=== PATIENT | female | born 1990 | race African-American/Black ===

== ENCOUNTER 2017-10-11 12:25 | Outpatient (CLI) | payer OTHER | END 2017-10-11 12:26 | disposition home or self-care (01) | LOC: BICULT 12:25 | PROVIDERS: ATTEND Family Medicine | DX: O23.592 Infection of other part of genital tract in pregnancy, second trimester (principal); Z3A.25 25 weeks gestation of pregnancy | CPT/HCPCS: 76805 ==

== ENCOUNTER 2017-10-21 08:48 | Emergency (ER) | payer OTHER | END 2017-10-21 10:30 | disposition home or self-care (01) | LOC: ERS 08:48 | DX: J30.9 Allergic rhinitis, unspecified (principal); F17.210 Nicotine dependence, cigarettes, uncomplicated | CPT/HCPCS: 99283 ==

== ENCOUNTER 2017-10-30 12:21 | Emergency (ER) | payer OTHER ==
[2017-10-30 13:27] LABS: Bilirubin Negative (Negative); Blood, Urine Negative (Negative); Clarity CLOUDY (Clear); Glucose, Urine (Dipstick) Negative (Negative); Leukocyte Trace (Negative); Nitrite Negative (Negative); Pregnancy Test - Urine (BHCG) POSITIVE (Negative); Pregu Control Background? CLEAR/WHITE (CLR/WHITE); Pregu Control Bar Appear? YES (CONTROL BAR); Protein, Urine (Dipstick) Negative (Neg-Trace); Specific Gravity 1.027 (1.002-1.036); Specific Gravity, Urine 1.027 (1.002-1.036)
[2017-10-30 13:28] LABS: Hyaline Casts/LPF 4-6 HYALINE CAST LPF (0-3 Hyaline); Pathc Cast-AUWi Flag 0.94 (0-2.49)
--- NOTE | 2017-10-30 13:37 | RAD ---
2 VIEW CHEST: Date: 10/30/17 HISTORY: Cough. FINDINGS: The lung obregon are clear. No infiltrate identified. Heart and mediastinum unremarkable. IMPRESSION: No acute abnormality. POS: [facility]
[2017-10-30 13:41] LABS: Bacteria/HPF 2+ HPF (None Seen)
[2017-10-30 13:42] LABS: RBC/HPF 0-3 HPF (0-3)
[2017-10-30] MEDS ORDERED: Acetaminophen 500 MG TAB ONE (13:45)
== END 2017-10-30 14:12 | disposition home or self-care (01) ==
LOC: ERS 12:21
DX: O99.89 Other specified diseases and conditions complicating pregnancy, childbirth and the puerperium (principal); R05 Cough; O23.42 Unspecified infection of urinary tract in pregnancy, second trimester; O99.332 Smoking (tobacco) complicating pregnancy, second trimester; Z3A.24 24 weeks gestation of pregnancy
CPT/HCPCS: 71046; 81003; 81015; 81025; 87086

== ENCOUNTER 2018-01-05 19:54 | Observation (INO) | payer OTHER ==
[2018-01-05 20:31] VITALS: BMI 19.8
[2018-01-05] MEDS ORDERED: Ondansetron HCl/PF 4 MG/2 ML Vial IVP PRN (23:55)
[2018-01-05] MEDS ORDERED: Acetaminophen 500 MG TAB PO PRN (23:55)
--- NOTE | 2018-01-06 01:31 | PRG ---
DATE OF SERVICE: 01/05/2018 PRIMARY OB: Dr. Alexys Simental. CHIEF COMPLAINT: Abdominal pains. HISTORY OF PRESENT ILLNESS: The patient is a 27-year-old, G4, P3 female with an intrauterine pregnan cy at 38 weeks and a day, who is followed by Dr. Alexys Simental. She reports that since 7:00 this even ing, she has been experiencing uterine contractions about every 5 minutes. She denies any vaginal bl eeding or leakage of fluid. She denies any urinary problems, any recent illness, fever, fall, headac he, chest pain, shortness of breath, nausea, vomiting, diarrhea, constipation, any hip problems, knee problems, or muscle weakness. PAST MEDICAL HISTORY: Negative. PAST SURGICAL HISTORY: Negative. SOCIAL HISTORY: Reports about a half pack per day of smoking tobacco, denies drug or alcohol use. ALLERGIES: No known drug allergies. MEDICATIONS: vitamins. OB LABS: One hour Glucola is 76. HIV is nonreactive third trimester. She is rubella immune. RPR n onreactive first trimester. Hepatitis B surface antigen nonreactive, HIV nonreactive, blood type B p ositive. REVIEW OF SYSTEMS: Per HPI. PHYSICAL EXAMINATION: VITAL SIGNS: Blood pressure is 107/67, heart rate is 70, respiratory rate of 20, temperature 98.6. GENERAL: She appears to be in no acute distress. She is alert and oriented, cooperative and pleasan t to interact with. HEAD: Normocephalic, atraumatic. CHEST: Clear to auscultation bilaterally. CARDIOVASCULAR: Heart has regular rate and rhythm. ABDOMEN: Gravid, soft in between contractions. EXTREMITIES: Nontender, nonedematous. CERVICAL EXAM: 2, 50 -3 station per nursing staff. After 2 hours, her cervix has been unchanged. heart tracing, baseline in the 130s with moderate long-term variability, positive accelerations , no decelerations prior to walking, contractions, difficult to assess. On her return from walking, the patient was noted to have a fetus with a baseline in the 130s with what appeared to be several de celerations, some in conjunction with contractions other ones not. A bedside ultrasound shows an GINGER of about 11-12 cm. ASSESSMENT AND PLAN: The patient is a 27-year-old, G4, P3 female with an intrauterine at 3 8 weeks and a day, who has a strip that is showing a spontaneous accelerations, but it has had severa l decelerations that are of unknown significance, but there have been persistent enough that I believ e the patient warrants overnight observation with continuous monitoring. The patient is not in activ e labor, though is having occasional contractions. Should the fetus develop a repetitive problem reymundo t is unresolvable, we will plan for decision depending on the urgency of or vaginal . Most recently, baseline has been in the 130s with moderate long-term variability, positive accelerat ions, again no decelerations. However, the patient does warrant observation until the morning. We w ill make another assessment at that time.
[2018-01-06] MEDS ORDERED: LR 500 ML/Oxytocin 10 units 500 ML IV SCH (07:00)
--- NOTE | 2018-01-06 07:58 | PRG ---
DATE OF SERVICE: 01/06/2018 PRIMARY OB: Dr. Alexys Simental. HISTORY OF PRESENT ILLNESS: The patient is a 27-year-old female who is 38 weeks , who came y esterday to evaluate for labor. In her evaluation, the patient was noted to have several deceleratio ns on her strip justifying continuous monitoring overnight. Most of the strip overnight was category 1 with moderate variability and positive accelerations; however, there were a couple areas where she had late appearing decelerations one in particular of concern. Unable to determine what these mean. The patient has no complaints this morning. She said she slept well last night and is otherwise fe eling fine. OBJECTIVE: VITAL SIGNS: Today, blood pressure is 110/55, heart rate of 60, respiratory rate of 16, temperature 98.5. GENERAL: She appears to be in no acute distress. Again, the heart tracing overnight showed a baseline in the 130s with moderate long-term variab ility, primarily positive accelerations. She did have a couple areas of minimal variability and coup le decelerations of concern. ASSESSMENT AND PLAN: Ms. Ferreira is a 27-year-old female with an intrauterine at 38 weeks, who presented for uterine contractions. Overall, the fetus has looked reassuring overnight, but giv en the nature of her contractions, I have opted to do a contraction stress test where we will be brin ging her existing contractions closer together to about every 2 minutes and see how baby tolerates th at over a 30 minute. If everything appears to be fine, we will discharge the patient home with instr uctions to follow up in a couple of days with her primary OB. If she continues to have decelerations in that setting, we will plan on delivery by today. Dr. Alexys Simental is out of town, but I will be communicating with Dr. Umana who is covering.
--- NOTE | 2018-01-06 09:41 | PDOC.EVN ---
Event Note - Event Note Event Note: Received report form Dr. Mistry. 27 yo BF EDC= 01/18/18 admitted for further OBS afterisolated decels seen. Rested comfortably overnight. No further decels seen. OCT performed, no decels seen. D/W Dr. Umana who is covering for Dr. Edwin Simental. Plan: DC with precautions. She reports she has an appt. with Dr. Simental on Sunday.
[2018-01-06 10:25] VITALS: BP 110/66; TEMP 97.9
== END 2018-01-06 09:56 | disposition home or self-care (01) ==
LOC: L&D/OP 19:54 → INTOOBSV 01-06 00:42 → L&D 01-06 00:42
PROVIDERS: ADMIT Obstetrics & Gynecology; ATTEND Obstetrics & Gynecology
DX: O76 Abnormality in fetal heart rate and rhythm complicating labor and delivery (principal); Z3A.38 38 weeks gestation of pregnancy
CPT/HCPCS: 59020; 76815; 99285; J7120

== ENCOUNTER 2018-01-11 14:12 | Day surgery (SDC) | payer OTHER ==
[2018-01-11 15:36] VITALS: BMI 21.4
[2018-01-11 15:43] LABS: Amnisure Internal Control QC ACCEPTABLE (ACCEPTABLE)
[2018-01-11 15:46] LABS: Amnisure Test No Membranes Rupture (No Rupture)
--- NOTE | 2018-01-11 20:12 | HP ---
DATE OF SERVICE: 01/11/2018 PRESENTING COMPLAINT: Suspected rupture of membranes and contractions. HISTORY OF PRESENT ILLNESS: Ms. Ferreira is a 27-year-old, 4, para 3 with an DARION of 8, placing her at 39 weeks, who presents complaining of leakage of fluid and contractions. She repor ts an active fetus. She denies bleeding. She sees Dr. Alexys Simental for her antepartum care. OBSTETRIC HISTORY: It appears from his chart, she had enrolment into antepartum care at 24 weeks ges tation, placing her at poor criteria for her estimated gestational age. HIV, RPR, hepatitis B, GC ch lamydia negative. Blood type is B positive. History of rapid deliveries, history of small babies. Group B strep culture on 12/17/2017 was negative. PAST MEDICAL HISTORY: Denies. PAST SURGICAL HISTORY: Denies. ALLERGIES: Denies. MEDICATIONS: vitamins. SOCIAL HISTORY: Positive tobacco use in . Denies drug abuse. FAMILY HISTORY: Noncontributory. REVIEW OF SYSTEMS: Noncontributory. PHYSICAL EXAMINATION: GENERAL: Thin, black female, in no acute distress. VITAL SIGNS: Blood pressure 106/72, temperature 98.4, respirations 18, pulse 85. HEENT: Within normal limits. LUNGS: Clear to auscultation bilaterally. HEART: Regular rhythm. ABDOMEN: Soft and nontender with occasional indentable contractions. PELVIC: Vulva is without lesions. Vagina is without discharge. On nurse exam, cervix is 2, 50, -2, cephalic posterior on nurse exam, which is consistent with the patient's previous office exam. Amni Sure was collected and result was negative. EXTREMITIES: Without clubbing, cyanosis or edema. A 20-minute heart rate tracing revealed positive accelerations, no decelerations. Uterine irri tability, but no dominant contraction pattern. IMPRESSION: A 39 weeks gestation, possible early prodromal labor, no evidence of rupture of membrane s. PLAN: Discussed with patient options. The patient has scheduled followup with Dr. Simental in 3 days. We will discharge the patient home. ER precautions for onset of labor.
== END 2018-01-11 15:25 | disposition home or self-care (01) ==
LOC: L&D/OP 14:12
PROVIDERS: ATTEND Family Medicine
DX: O47.1 False labor at or after 37 completed weeks of gestation (principal); O99.333 Smoking (tobacco) complicating pregnancy, third trimester; Z3A.39 39 weeks gestation of pregnancy; Z79.899 Other long term (current) drug therapy
CPT/HCPCS: 84112; 99283

== ENCOUNTER 2018-01-14 21:00 | Inpatient (IN) | payer OTHER ==
--- NOTE | 2018-01-14 21:29 | HP ---
HISTORY OF PRESENT ILLNESS: This is a 27-year-old black female at 39 weeks' gestation with EDC of 01/18/2018, being admitted for elective induction. The patient has a history of rapid deliveries . She also has been measuring small. However, she has not been obtaining her ultrasounds as madhavi edgar. Therefore, I feel we should deliver sooner than later. No complaints of any contractions. PAST MEDICAL HISTORY: Unremarkable. ALLERGIES: None. PAST SURGICAL HISTORY: Spontaneous vaginal delivery x3. FAMILY HISTORY: Unremarkable. SOCIAL HISTORY: She is . She is a housewife. She does not smoke, does not drink. REVIEW OF SYSTEMS: As above. PHYSICAL EXAMINATION: VITAL SIGNS: Stable, afebrile. HEENT: Clear. HEART: Clear. LUNGS: Clear. ABDOMEN: Gravid, fundal height of 32 cm. Last cervical exam was 2 cm, 50%, -1. LABORATORY DATA: Hematocrit is 35.7. One-hour GCT 76. History of ASCUS Pap; history of BV, treated , GC chlamydia negative; B positive blood type; HIV negative; hepatitis B negative; thyroid normal; R ME negative; rubella immune. ASSESSMENT: 1. A 39-week intrauterine . 2. Small for dates. 3. History of rapid deliveries. PLAN: 1. Routine anesthesia orders. 2. Routine L&D orders. 3. Cytotec/Pitocin induction.
[2018-01-14 21:45] VITALS: BMI 19.8
[2018-01-14] MEDS: Lactated Ringer's 1,000 ML IV SCH (22:00)
[2018-01-14] MEDS ORDERED: Ondansetron HCl/PF 4 MG/2 ML Vial IVP PRN (22:15)
[2018-01-14] MEDS ORDERED: HYDROcodone/Acetaminophen 5/325 mg Tablet PO PRN (22:15)
[2018-01-14] MEDS ORDERED: Ibuprofen 800 MG TAB PO PRN (22:15)
[2018-01-14] MEDS ORDERED: NS w/ Oxytocin 10 units 500 ML IV SCH (22:15)
[2018-01-14] MEDS ORDERED: NS / Oxytocin 40 units/1000ml 1,000 ML IV PRN (22:15)
[2018-01-14] MEDS ORDERED: Lidocaine 1% (PF) 30 ML VIAL SC PRN (22:15)
[2018-01-14] MEDS ORDERED: Butorphanol Tartrate 1 MG/ML VIAL SLOW IVP PRN (22:15)
[2018-01-14] MEDS ORDERED: Acetaminophen 500 MG TAB PO PRN (22:15)
[2018-01-14] MEDS ORDERED: Misoprostol 200 MCG TAB PR PRN (22:15)
[2018-01-14] MEDS ORDERED: Zolpidem Tartrate 5 MG TAB PO PRN (22:15)
[2018-01-14] MEDS ORDERED: Promethazine HCl 25 MG/ML VIAL IM PRN (22:15)
[2018-01-14] MEDS: Misoprostol 100 MCG TAB VAG SCH (22:50)
[2018-01-14 23:47] LABS: Mean Corpuscular HGB CONC 33.8 g/dL (32.0-36.0); Mean Corpuscular Hemoglobin 29.1 pg (27.0-31.0); Mean Corpuscular Volume 86.2 fl (81.0-99.0); Mean Platelet Volume 8.3 fL (7.4-10.4); Platelet Count 151 thou/uL (130-400); RBC Distribution Width 11.5 % (11.5-14.5); Red Blood Cell (RBC) Count 4.47 mill/uL (4.20-5.40); White Blood Cell (WBC) Count 7.6 thou/uL (4.8-10.8)
[2018-01-15] MEDS: Lactated Ringer's 1,000 ML IV SCH ×3 (00:07→12:35)
[2018-01-15 00:21] LABS: Syphilis Antibody Nonreactive (Nonreactive); Syphilis Antibody Index 0.05 S/CO (<1.00 Non-Reactive)
[2018-01-15 00:22] LABS: HBSAg Index 0.18 S/CO (0-0.99); Hep B Surf Ag Non-Reactive S/CO (NonReactive)
[2018-01-15] MEDS ORDERED: Terbutaline Sulfate 1 MG/ML VIAL ONE (00:23)
[2018-01-15] MEDS ORDERED: Terbutaline Sulfate 1 MG/ML VIAL SC PRN (00:46)
[2018-01-15] MEDS ORDERED: Bupivacaine 0.5% 20 ML, fentaNYL Citrate/PF 400 MCG in Sodium Chloride 0.9% 72 ML EPIDURAL SCH ×2 (01:30→08:00)
[2018-01-15] MEDS: Misoprostol 100 MCG TAB VAG SCH ×3 (07:00→23:00)
[2018-01-15] MEDS ORDERED: Naloxone HCl 0.4 mg/ml Vial IVP PRN ×2 (07:26)
[2018-01-15] MEDS ORDERED: Eucerin (Mineral Oil/Petrolatum,White) 30 gm Jar TOP PRN (07:26)
[2018-01-15] MEDS ORDERED: Lactated Ringer's 500 ML IV PRN (07:26)
[2018-01-15] MEDS ORDERED: Promethazine HCl 25 MG/ML VIAL IM PRN (07:26)
[2018-01-15] MEDS ORDERED: Acetaminophen 325 MG TAB PO PRN (07:26)
[2018-01-15] MEDS ORDERED: ePHEDrine/0.9% NaCl/PF SYRINGE 50 mg/10 ml SLOW IVP PRN (07:26)
[2018-01-15] MEDS ORDERED: Ondansetron HCl/PF 4 MG/2 ML Vial IVP PRN (07:26)
[2018-01-15] MEDS ORDERED: diphenhydrAMINE 50 MG/ML VIAL IVP PRN (07:26)
[2018-01-15] MEDS ORDERED: Fentanyl 4mcg/Marcaine 0.1% Cassette 100 ML EPIDURAL SCH (07:30)
[2018-01-15] MEDS ORDERED: Communication Order-Pharmacy FS SCH (07:30)
[2018-01-15] MEDS ORDERED: DISCONTINUE ALL PREVIOUS NARCOTICS FS SCH (08:00)
[2018-01-15] MEDS ORDERED: HYDROcodone/Acetaminophen 5/325 mg Tablet PO PRN (16:00)
[2018-01-15] MEDS ORDERED: diphenhydrAMINE 25 MG CAP PO PRN (16:00)
[2018-01-15] MEDS ORDERED: Adacel (T-DAP) 0.5 ML VIAL IM ONE (16:00)
[2018-01-15] MEDS ORDERED: NS / Oxytocin 40 units/1000ml 1,000 ML IV SCH (16:00)
[2018-01-15] MEDS ORDERED: Lanolin Ointment 7 GM TUBE TOP PRN (16:00)
[2018-01-15] MEDS ORDERED: Milk Of Magnesia 30 ML UDCUP PO PRN (16:00)
[2018-01-15] MEDS ORDERED: Bisacodyl 10 MG SUPP PR PRN (16:00)
[2018-01-15] MEDS: Ferrous Sulfate 325 MG TAB PO SCH (18:00)
[2018-01-15] MEDS: Docusate Calcium (SURFAK) 240 MG CAP PO SCH (21:59)
[2018-01-16] MEDS: Ibuprofen 800 MG TAB PO SCH ×2 (04:40→13:59)
[2018-01-16 05:43] LABS: Hemoglobin 10.6 g/dL (12.0-16.0); Mean Corpuscular Hemoglobin 29.8 pg (27.0-31.0); Mean Corpuscular Volume 87.6 fl (81.0-99.0); Mean Platelet Volume 7.8 fL (7.4-10.4); Platelet Count 130 thou/uL (130-400); RBC Distribution Width 11.6 % (11.5-14.5); Red Blood Cell (RBC) Count 3.54 mill/uL (4.20-5.40); White Blood Cell (WBC) Count 8.4 thou/uL (4.8-10.8)
[2018-01-16] MEDS: Ferrous Sulfate 325 MG TAB PO SCH (07:43)
[2018-01-16 08:48] VITALS: BP 107/63; TEMP 98.4
[2018-01-16] MEDS ORDERED: Prenatal Vitamin 1 TAB PO SCH (09:00)
[2018-01-16] MEDS: Docusate Calcium (SURFAK) 240 MG CAP PO SCH (09:47)
[2018-01-16] MEDS ORDERED: Lidocaine 2% MPF 10 ML AMP (For Epidural Use) ONE (10:56)
[2018-01-16] MEDS ORDERED: Bupivacaine/Epinephrine 0.25% 30 ML VIAL ONE (10:56)
== END 2018-01-16 15:20 | disposition home or self-care (01) | DRG 775 ==
LOC: L&D 21:04 → 3SW 01-15 15:47
PROVIDERS: ADMIT Family Medicine; ATTEND Family Medicine
PROC: 10E0XZZ Delivery of Products of Conception, External Approach (ICD-10-PCS; principal; 2018-01-14)
PROC: 3E033VJ Introduction of Other Hormone into Peripheral Vein, Percutaneous Approach (ICD-10-PCS; 2018-01-14)
PROC: 3E0P7VZ Introduction of Hormone into Female Reproductive, Via Natural or Artificial Opening (ICD-10-PCS; 2018-01-14)
PROC: 10907ZC Drainage of Amniotic Fluid, Therapeutic from Products of Conception, Via Natural or Artificial Opening (ICD-10-PCS; 2018-01-14)
DX: O36.5930 Maternal care for other known or suspected poor fetal growth, third trimester, not applicable or unspecified (principal); Z37.0 Single live birth; Z3A.39 39 weeks gestation of pregnancy; O69.81X0 Labor and delivery complicated by cord around neck, without compression, not applicable or unspecified; O76 Abnormality in fetal heart rate and rhythm complicating labor and delivery
CPT/HCPCS: 36415; 51702; 85027; 86780; 86850; 86900; 86901; 87340; J2001; J3010; J3105; J3490; J7050

== ENCOUNTER 2018-10-06 11:36 | Emergency (ER) | payer OTHER ==
[2018-10-06 12:40] LABS: #Basophils 0.1 thou/uL (0.0-0.2); #Eosinphils 0.1 thou/uL (0.0-0.7); #Lymphocytes 1.5 thou/uL (1.20-3.40); #Monocytes 0.6 thou/uL (0.11-0.59); #Neutrophils 4.4 thou/uL (1.40-6.50); %Basophils 1.3 % (0.0-1.0); %Eosinophils 1.4 % (0.0-10.0); %Lymphocytes 22.8 % (21.0-51.0); %Monocytes 8.8 % (0.0-10.0); %Neutrophils 65.7 % (42.0-75.0); Hemoglobin 12.2 g/dL (12.0-16.0); Mean Corpuscular Hemoglobin 28.8 pg (27.0-31.0); Mean Corpuscular Volume 87.2 fL (78.0-98.0); Mean Platelet Volume 8.2 fL (7.4-10.4); Platelet Count 167 thou/uL (130-400); RBC Distribution Width 10.8 % (11.5-14.5); Red Blood Cell (RBC) Count 4.23 mill/uL (4.20-5.40); White Blood Cell (WBC) Count 6.7 thou/uL (4.8-10.8)
[2018-10-06 13:42] LABS: Bilirubin Negative (Negative); Blood, Urine Negative (Negative); Clarity CLEAR (Clear); Glucose, Urine (Dipstick) Negative (Negative); Leukocyte Moderate (Negative); Nitrite Negative (Negative); Protein, Urine (Dipstick) Negative (Neg-Trace); Specific Gravity, Urine 1.019 (1.002-1.036); pH, Urine 6.5 (5.0-9.0)
[2018-10-06 13:44] LABS: Bacteria/HPF None Seen HPF (None Seen); Hyaline Casts/LPF 0-3 HYALINE CAST LPF (0-3 Hyaline); Pathc Cast-AUWi Flag 0.58 (0-2.49); WBC/HPF 21-50 HPF (0-3)
--- NOTE | 2018-10-06 14:24 | ULT ---
OB ULTRASOUND: COMPARISON: None. HISTORY: female with vaginal spotting. TECHNIQUE: Multiplanar, levin scale, and color Doppler images were obtained in a transabdominal ultrasound. Spectral analysis of the Doppler waveforms of the ovaries was performed. FINDINGS: There is a single live intrauterine with a heart rate of 171 b.p.m. A pole is seen w ith crown-rump length of 5.07 cm. biometrics were also performed. Estimated age of the fetus based off these biometric measurements is 12 weeks 2 days. The following measures were taken and sydnee es based off these measurements are follows. BPD 1.80 cm, 12 weeks 5 days HC 7.26 cm, 13 weeks 0 days AC 5.66 cm, 12 weeks 4 days FL 0.95 cm, 12 weeks 6 days There is a hypoechoic region adjacent to the gestational sac which could represent a very small subch orionic hemorrhage. The amniotic fluid volume is subjectively within normal limits. The right ovary is normal in size and appearance and demonstrates normal internal flow. The left ovary is not defin itely seen. IMPRESSION: 1. Single live intrauterine with estimated age of 12 weeks 2 days. 2. Possible small subchorionic hemorrhage. POS: [facility]
== END 2018-10-06 14:34 | disposition home or self-care (01) ==
LOC: ERS 11:36
DX: O20.0 Threatened abortion (principal); O99.511 Diseases of the respiratory system complicating pregnancy, first trimester; J02.0 Streptococcal pharyngitis; Z87.891 Personal history of nicotine dependence
CPT/HCPCS: 36415; 76815; 81003; 81015; 84702; 85025; 86900; 86901; 87430; 99284

== ENCOUNTER 2019-01-30 14:45 | Outpatient (CLI) | payer OTHER ==
--- NOTE | 2019-01-30 17:02 | ULT ---
ULTRASOUND OBSTETRICAL COMPLETE: 01/30/19 HISTORY: 28-year-old female presents for evaluation of anatomical survey. Z3A.27, 27 weeks gestation of . FINDINGS: number: [place] lie: Cephalic Maternal cervix: 3.5 cm in length and closed. Placenta: Anterior. No placenta previa. Amniotic fluid volume: GINGER = 21.5 cm. heart rate: 147 bpm The following anatomy is visualized, with no evidence of anomalies: Head, lateral ventricles, cerebellum, nose and lips, spine, upper limbs, lower limbs, four chamber he art, umbilical cord, cord insertion, stomach, kidneys, and bladder. biometry: Head circumference (HC): 26.8 cm 29w 2d Biparietal diameter (BPD): 7.0 cm 28w 2d Abdominal circumference (AC): 22.2 cm 26w 5d Femur length (FL): 5.5 cm 29w 1d Average ultrasound age (AUA): 28w 3d Estimated date of delivery (DARION): 04/21/19 Last menstrual period (LMP): 07/16/2018 Gestational age by LMP: 28w 2d Estimated weight (EFW): 1133 g +/- 165 g (2 lb. 8 oz. +/- 6 oz.) IMPRESSION: 1. Live very early third trimester intrauterine gestation. 2. Estimated gestational age of 28 weeks, 3 days. 3. Cephalic lie. 4. No anatomical abnormalities. 5. Borderline polyhydramnios. Recommend follow-up. maureen [] POS: [facility]
== END 2019-01-30 14:46 | disposition home or self-care (01) ==
LOC: BICULT 14:45
PROVIDERS: ATTEND Family Medicine
DX: Z34.93 Encounter for supervision of normal pregnancy, unspecified, third trimester (principal); Z3A.28 28 weeks gestation of pregnancy
CPT/HCPCS: 76805

== ENCOUNTER 2019-04-01 09:07 | Outpatient (CLI) | payer OTHER ==
--- NOTE | 2019-04-01 09:33 | ULT ---
EXAM: Limited OB ultrasound COMPARISON: None HISTORY: female. Evaluate amniotic fluid volume and presentation. TECHNIQUE: Multiplanar grayscale and color Doppler images were obtained in a limited transabdominal f etal ultrasound. FINDINGS: There is a single live intrauterine with heart rate of 144 bpm. The placenta is anterior in location without focal abnormality. The fetus is in cephalic presentatio n. GINGER is 11.05 cm which is normal. The cervix is normal in length. There is no evidence of placenta previa. IMPRESSION: Live intrauterine in cephalic presentation
== END 2019-04-01 09:08 | disposition home or self-care (01) ==
LOC: BICULT 09:07
PROVIDERS: ATTEND Family Medicine
DX: Z34.93 Encounter for supervision of normal pregnancy, unspecified, third trimester (principal); Z3A.36 36 weeks gestation of pregnancy
CPT/HCPCS: 76815

== ENCOUNTER 2019-04-15 10:07 | Inpatient (IN) | payer OTHER ==
[2019-04-15] MEDS ORDERED: Carboprost 250 MCG/ML AMP IM PRN (11:01)
[2019-04-15] MEDS ORDERED: Methylergonovine 0.2 MG/ML VIAL IM PRN (11:01)
[2019-04-15] MEDS ORDERED: Misoprostol 200 MCG TAB PR PRN (11:01)
[2019-04-15] MEDS ORDERED: Promethazine HCl 25 MG/ML VIAL IM PRN ×2 (11:01→16:48)
[2019-04-15] MEDS ORDERED: Ibuprofen 800 MG TAB PO PRN (11:01)
[2019-04-15] MEDS ORDERED: Acetaminophen 500 MG TAB PO PRN (11:01)
[2019-04-15] MEDS ORDERED: Lidocaine 1% (PF) 30 ML VIAL SC PRN (11:01)
[2019-04-15] MEDS ORDERED: NS / Oxytocin 40 units/1000ml 1,000 ML IV PRN (11:01)
[2019-04-15] MEDS ORDERED: hydrALAZINE 20 MG/ML VIAL SLOW IVP PRN ×2 (11:01→20:16)
[2019-04-15] MEDS ORDERED: Butorphanol Tartrate 1 MG/ML VIAL SLOW IVP PRN (11:01)
[2019-04-15] MEDS ORDERED: HYDROcodone/Acetaminophen 5/325 mg Tablet PO PRN ×2 (11:01→20:16)
[2019-04-15] MEDS ORDERED: Ondansetron PF 4 MG/2 ML Vial IVP PRN ×2 (11:01→16:48)
[2019-04-15] MEDS ORDERED: NS w/ Oxytocin 10 units 500 ML IV SCH (11:15)
[2019-04-15 11:16] VITALS: BMI 21.1
[2019-04-15] MEDS: Lactated Ringer's 1,000 ML IV SCH ×2 (11:22→14:34)
[2019-04-15 11:55] LABS: Hemoglobin 11.5 g/dL (12.0-16.0); Mean Corpuscular HGB CONC 33.3 g/dL (32.0-36.0); Mean Corpuscular Hemoglobin 28.2 pg (27.0-31.0); Mean Corpuscular Volume 84.8 fL (78.0-98.0); Mean Platelet Volume 8.3 fL (7.4-10.4); Platelet Count 154 thou/uL (130-400); RBC Distribution Width 11.4 % (11.5-14.5); Red Blood Cell (RBC) Count 4.09 mill/uL (4.20-5.40)
[2019-04-15 12:36] LABS: HBSAg Index 0.15 S/CO (0-0.99); Hep B Surf Ag Non-Reactive S/CO (NonReactive); Syphilis Antibody Nonreactive (Nonreactive); Syphilis Antibody Index 0.06 S/CO (<1.00 Non-Reactive)
[2019-04-15] MEDS ORDERED: Fentanyl 4 mcg/Bup 0.1% Cadd 100 ML ONE (13:38)
[2019-04-15] MEDS ORDERED: metroNIDAZOLE 500 MG TAB PO SCH (16:30)
[2019-04-15] MEDS ORDERED: ePHEDrine/0.9% NaCl/PF SYRINGE 50 mg/10 ml SLOW IVP PRN (16:48)
[2019-04-15] MEDS ORDERED: Acetaminophen 325 MG TAB PO PRN (16:48)
[2019-04-15] MEDS ORDERED: Naloxone HCl 0.4 mg/ml Vial IVP PRN ×2 (16:48)
[2019-04-15] MEDS ORDERED: diphenhydrAMINE 50 MG/ML VIAL IVP PRN (16:48)
[2019-04-15] MEDS ORDERED: Lactated Ringer's 500 ML IV PRN (16:48)
[2019-04-15] MEDS ORDERED: Fentanyl 4 mcg/Bupivacaine 0.1% Cassette 100 ML EPIDURAL SCH (17:00)
[2019-04-15] MEDS ORDERED: Communication Order-Pharmacy FS SCH (17:00)
[2019-04-15] MEDS ORDERED: Lidocaine 2% MPF 10 ML AMP (For Epidural Use) ONE (18:00)
--- NOTE | 2019-04-15 19:05 | PDOC.OPDEL ---
OB Operative/Delivery Note Delivery Dr/Surgeon: Dong Pre-Delivery Diagnosis: elective induction Procedure/Post Delivery Dx: spontaneous vaginal delivery (Delivered OA, no nuchal cord, shoulders and body easily followed.) Weeks gestation: 39 Anesthesia: epidural - Findings A Sex: female - 1 min: 9 - 5 min: 9 - Additional Findings/Plan Placenta delivered: spontaneous Repaired Obstetrical Laceration: none Estimated blood loss: 200 Post delivery plan: routine recovery
[2019-04-15] MEDS ORDERED: NS / Oxytocin 40 units/1000ml 1,000 ML IV SCH (20:16)
[2019-04-15] MEDS ORDERED: Bisacodyl 10 MG SUPP PR PRN (20:16)
[2019-04-15] MEDS ORDERED: Milk Of Magnesia 30 ML UDCUP PO PRN (20:16)
[2019-04-15] MEDS ORDERED: Benzocaine-Menthol 82.5 ML CAN TOP PRN (20:16)
[2019-04-15] MEDS ORDERED: diphenhydrAMINE 25 MG CAP PO PRN (21:28)
[2019-04-15] MEDS: Ibuprofen 800 MG TAB PO SCH (22:05)
[2019-04-15] MEDS: Docusate Calcium (SURFAK) 240 MG CAP PO SCH (22:05)
[2019-04-16] MEDS: Ibuprofen 800 MG TAB PO SCH ×2 (06:14→13:54)
[2019-04-16] MEDS ORDERED: Adacel (T-DAP) 0.5 ML SYRINGE IM ONE (09:00)
[2019-04-16] MEDS: Docusate Calcium (SURFAK) 240 MG CAP PO SCH (09:47)
[2019-04-16] MEDS: Ferrous Sulfate 325 MG TAB PO SCH ×2 (09:49→17:13)
--- NOTE | 2019-04-16 15:53 | PDOC.PP ---
Post Progress Note Post Day #: 1 Subjective: Feeling well, bleeding normal, no pain. PO intake tolerated: yes Flatus: yes Ambulation: yes Vital Signs (12 hours) Temp Pulse Resp BP Pulse Ox 04/16/19 08:44 98.3 F 60 20 111/76 98 04/16/19 04:21 60 16 104/68 100 Weight Weight 131 lb - Physical Examination General: NAD Cardiovascular: no m/r/g, RRR Respiratory: clear to auscultation bilaterally, non-labored breathing Abdominal: + bowel sounds, lochia, no distention, appropriately TTP Result Diagrams: 04/15/19 11:32 Additional Labs: Post Labs Blood Type B POSITIVE 04/15/19 11:32 Hep Bs Antigen Non-Reactive S/CO (NonReactive) 04/15/19 11:32 (1) Vaginal delivery Code(s): O80 - ENCOUNTER FOR FULL-TERM UNCOMPLICATED DELIVERY Status: Acute (2) Trichomonas vaginitis Status: Acute - Assessment/Plan Routine care May D/C later this evening F/U with Edwin Simental 6 weeks
[2019-04-16 20:22] VITALS: BP 128/74; TEMP 98.5
== END 2019-04-16 20:41 | disposition home or self-care (01) | DRG 807 ==
LOC: L&D 10:07 → 3SW 20:37
PROVIDERS: ADMIT Family Medicine; ATTEND Family Medicine
PROC: 10E0XZZ Delivery of Products of Conception, External Approach (ICD-10-PCS; principal; 2019-04-15)
PROC: 3E033VJ Introduction of Other Hormone into Peripheral Vein, Percutaneous Approach (ICD-10-PCS; 2019-04-15)
DX: O98.32 Other infections with a predominantly sexual mode of transmission complicating childbirth (principal); Z37.0 Single live birth; A59.01 Trichomonal vulvovaginitis; Z3A.39 39 weeks gestation of pregnancy
CPT/HCPCS: 36415; 85027; 86780; 86850; 86900; 86901; 87340; J2001; J2590; Q0163

== ENCOUNTER 2024-07-31 11:21 | Emergency (ER) | payer OTHER ==
[2024-07-31] MEDS ORDERED: Amoxicillin/Potassium Clav 875 MG TAB ONE (12:34)
[2024-07-31] MEDS ORDERED: Ketorolac Tromethamine 30 MG (1 mL) VIAL ONE ×2 (12:34→12:35)
[2024-07-31] MEDS ORDERED: predniSONE 20 MG TAB ONE (12:34)
== END 2024-07-31 12:50 | disposition home or self-care (01) ==
LOC: ERS 11:21
DX: K04.01 Reversible pulpitis (principal); K08.89 Other specified disorders of teeth and supporting structures; F17.210 Nicotine dependence, cigarettes, uncomplicated
CPT/HCPCS: 96372; 99282; J1885; J7512